=== PATIENT | male | born 1995 | race Caucasian/White ===

== ENCOUNTER 2021-12-06 17:20 | Emergency (ER) | payer OTHER, SELFPAY ==
--- NOTE | 2021-12-06 | ECG_ITS ---
Test Reason : chest pressure Blood Pressure : / mmHG Vent. Rate : 085 BPM Atrial Rate : 085 BPM P-R Int : 164 ms QRS Dur : 094 ms QT Int : 348 ms P-R-T Axes : 070 017 024 degrees QTc Int : 414 ms Normal sinus rhythm Normal ECG No previous ECGs available Referred By: Generic ED Physician Electronically Signed By:Albin Lake
--- NOTE | ~2021-12-06 | CT_ITS ---
EXAMINATION: CT ANGIOGRAM OF THE CHEST WITH AND WITHOUT CONTRAST (CT PULMONARY ANGIOGRAM FOR PE) CLINICAL INFORMATION: Reason for Exam Chest pain with shortness of breath COMPARISON: Chest radiograph 04/02/2019 TECHNIQUE: Prior to contrast administration, noncontrast localization images were obtained. Subsequently, multidetector volumetric imaging was performed from the thoracic inlet to below the diaphragms following the administration of 71 mL Omnipaque 350 intravenous contrast. No contrast reaction reported Sagittal, coronal, and MIP oblique sagittal reformatted images were obtained on the CT workstation, uploaded to PACS, and reviewed. This CT examination was performed using dose optimization techniques as appropriate, variously including the following: *Automated exposure control *Adjustment of mA and/or kV according to patient size (this includes techniques or standardized protocols for targeted exams where dose is matched to indication/reason for exam; i.e. extremities or head) *Use of iterative reconstruction technique Total exam dose-length product 436 mGy-cm FINDINGS: QUALITY OF STUDY/CONTRAST BOLUS: Satisfactory. PULMONARY ARTERIES: No central or segmental pulmonary emboli. THORACIC AORTA: No aneurysm or dissection. LUNG: No focal consolidation, nodules or masses. PLEURA: No pleural effusion or pneumothorax. MEDIASTINUM: Normal heart size. No pericardial effusion. No hilar or mediastinal lymphadenopathy. No evidence of septal bowing or right heart strain. CHEST WALL/AXILLA: No axillary or internal mammary lymphadenopathy. OSSEOUS STRUCTURES: No acute or suspicious osseous abnormality. UPPER ABDOMEN: There is splenomegaly and hepatic steatosis. No reflux of contrast into the hepatic veins to suggest elevated right heart pressures. CT/CT angio chest PE protocol IMPRESSION: No evidence of pulmonary emboli. Incidentally noted hepatic steatosis and splenomegaly VTE: negative
[2021-12-06 17:31] VITALS: BP 163/93; PULSE 97; RESP 18; TEMP 36.7; O2SAT 98; BMI 32.8
[2021-12-06 18:00] LABS: MANUAL DIFF FLAG NO
[2021-12-06 18:04] LABS: Basophils Percent Auto 0.4 % (0-2); Eosinophils Percent Auto 0.4 % (0-4); Hemoglobin 15.4 g/dl (14.0-18.0); Imm Gran Abs Auto 0.03 X10*3/uL (0.00-0.03); Imm Gran Pct Auto 0.3 % (0.0-0.4); Lymphocytes Absolute Auto 2.6 X10*3/uL (1.2-4.9); Lymphocytes Percent Auto 26.6 % (20-40); Mean Corpuscular Hemoglobin 29.7 pg (27.0-33.0); Mean Corpuscular Volume 84.8 fL (80.0-98.0); Mean Platelet Volume 9.8 fL (9.4-12.4); Monocytes Absolute Auto 0.7 X10*3/uL (0.1-1.2); Neutrophils Absolute Auto 6.3 x10*3/uL (2.0-8.3); Neutrophils Percent Auto 65.3 % (45-73); Platelet Count 236 X10*3/uL (160-400); Red Blood Count 5.19 X10*6/uL (4.60-5.80); Red Cell Distribution Width 12.1 % (11.0-16.0); White Blood Count 9.6 X10*3/uL (4.8-10.8)
[2021-12-06 18:29] LABS: Troponin-I High Sensitivity < 3.5 ng/L (<3.5-35.0)
[2021-12-06 18:34] LABS: Anion Gap 14 (12-20); Blood Urea Nitrogen 17 mg/dL (9-16); Calcium 9.7 mg/dL (8.4-10.2); Carbon Dioxide 25 mmol/L (22-29); Chloride 103 mmol/L (96-108); Creatinine Clr Calc Pharmacy 116.4; Estimated Glomerular Filt Rate > 60; Glucose Random 100 mg/dL (60-115); Potassium 3.4 mmol/L (3.3-5.1); Sodium 139 mmol/L (135-145)
[2021-12-06 21:09] VITALS: BP 154/67; PULSE 74; RESP 18; TEMP 36.8; O2SAT 98
--- NOTE | 2021-12-06 21:56 | ED_ITS ---
HPI - Chest Pain General Chief Complaint: Arrhythmia/Palpitations Stated Complaint: chest pressure/ hypertension Time Seen by Provider: 12/06/21 21:50 Source: patient Mode of arrival: ambulatory Limitations: no limitations History of Present Illness HPI narrative: Patient with no significant past medical history except for mild anxiety very strong family history of hypertension while at work notice mid chest pain/heavy checked his blood pressure was 220/130, on arrival patient blood pressure was 163/93 also patient has been feeling more short of breath for last 4- 5 days no leg pain patient fell palpitation but on arrival heart rate was 97 patient denies any significant anxiety at this time Related Data Previous Rx's Medication Instructions Recorded lisinopril 10 1 tab PO DAILY #30 tab 12/07/21 mg-hydrochlorothiazide 12.5 mg tablet Allergies Allergy/AdvReac Type Severity Reaction Status Date / Time amoxicillin Allergy Mild Rash Verified 12/06/21 17:30 Review of Systems Review of Systems: Yes all other systems are reviewed and are negative [facility] Social History Social History Advance Directives: No Physical Exam Vital Signs: Vital Signs: Last Vital Signs Temp 98.4 F 12/07/21 00:00 Pulse 74 12/07/21 00:00 Resp 16 12/07/21 00:00 BP 138/89 12/07/21 00:00 Pulse Ox 99 12/07/21 00:00 BMI result Body Mass Index 32.8 Appearance: Alert. Oriented X3. No acute distress. Slightly anxious Eyes: PERRLA, No Nystagmus ENT: Pharynx normal. Oral Mucosa moist Neck: Normal inspection. Neck supple. No carotid bruit CVS: Normal heart rate and rhythm. Pulses normal. Equal blood pressure both arms Respiratory: No respiratory distress. Equal air entry bilateral, no wheezing/rales/rhonchi Abdomen: Soft and nontender. Bowel sounds are present, no mass palpable, no CVA tenderness Skin: Skin warm and dry. Normal skin color. Normal skin turgor. Extremities: No lower extremity edema. No calf tenderness Neuro: Oriented X 3. No motor deficit. No sensory deficit.No cerebellar signs , cranial nerves II-XII intact MDM - Chest Pain MDM Narrative Medical decision making narrative: Patient with accelerated hypertension with strong family history of hypertension although he does have anxiety per blood pressure was about 200 no acute ischemic EKG changes restart patient on lisinopril advised patient to follow-up with PCP and do ambulatory blood pressure check and follow with PCP. Chest CTA negative for dissection or PE Lab Data Attestation: I reviewed the patient's lab results. Result diagrams: 12/06/21 17:53 12/06/21 17:53 Labs: Lab Results 12/06/21 12/06/21 12/06/21 Range/Units 17:53 17:53 17:53 WBC 9.6 (4.8-10.8) X10*3/uL RBC 5.19 (4.60-5.80) X10*6/uL Hgb 15.4 (14.0-18.0) g/dl Hct 44.0 (42.0-52.0) % MCV 84.8 (80.0-98.0) fL MCH 29.7 (27.0-33.0) pg MCHC 35.0 (31.0-36.0) g/dl RDW 12.1 (11.0-16.0) % Plt Count 236 (160-400) X10*3/uL MPV 9.8 (9.4-12.4) fL Immature Gran % (Auto) 0.3 (0.0-0.4) % Neut % (Auto) 65.3 (45-73) % Lymph % (Auto) 26.6 (20-40) % [place] % (Auto) 7.0 (2-11) % Eos % (Auto) 0.4 (0-4) % Baso % (Auto) 0.4 (0-2) % Lymph # (Auto) 2.6 (1.2-4.9) X10*3/uL [place] # (Auto) 0.7 (0.1-1.2) X10*3/uL Eos # (Auto) 0.0 (0.0-0.4) X10*3/uL Baso # (Auto) 0.0 (0.0-0.2) X10*3/uL Abs Immat Gran (auto) 0.03 (0.00-0.03) X10*3/uL Absolute Neuts (auto) 6.3 (2.0-8.3) x10*3/uL Absolute Nucleated RBC 0.000 (0.0-0.012) X10*3/uL Nucleated RBC % (auto) 0.0 (0.0-0.2) /100WBC Sodium 139 (135-145) mmol/L Potassium 3.4 (3.3-5.1) mmol/L Chloride 103 (96-108) mmol/L Carbon Dioxide 25 (22-29) mmol/L Anion Gap 14 (12-20) BUN 17 H (9-16) mg/dL Creatinine 1.23 (0.5-1.4) mg/dL Estim Creat Clear Calc 116.4 Estimated GFR > 60 Random Glucose 100 (60-115) mg/dL Calcium 9.7 (8.4-10.2) mg/dL Troponin I High Sens < 3.5 (<3.5-35.0) ng/L ECG Data ECG #1: Attestation: I personally reviewed and interpreted this ECG as follows: Interpretation: Heart rate 85 beats per minute sinus rhythm, normal axis normal intervals no acute ST-T changes impression normal EKG Discharge Plan Discharge Clinical Impression: Chest pain, Hypertension Patient Disposition: Home, Self-Care Instructions: Chest Pain (DC), Hypertension (ED) Additional Instructions: Avoid salt, exercise reduce weight Take blood pressure medicine daily as prescribed The blood pressure should be less than 140/90 Follow up with PCP Prescriptions: New lisinopril-hydrochlorothiazide 10-12.5 mg tablet 1 tab PO DAILY Qty: 30 0RF
[2021-12-06] MEDS: iohexoL 350 MG/ML 100 ML INFUS..BTL IV (22:55)
[2021-12-06] MEDS: lisinopriL 10 MG TABLET PO (23:41)
[2021-12-07] VITALS: BP 138/89; PULSE 74; RESP 16; TEMP 36.9; O2SAT 99
[2021-12-07 00:54] LABS: Troponin-I High Sensitivity < 3.5 ng/L (<3.5-35.0)
== END 2021-12-07 01:18 | disposition home or self-care (01) ==
PROVIDERS: Emergency Provider Internal Medicine
DX: I49.9 Cardiac arrhythmia, unspecified (principal); R07.89 Other chest pain; I10 Essential (primary) hypertension; Z79.899 Other long term (current) drug therapy
CPT/HCPCS: 36415; 71275; 80048; 84484; 85025; 93005; 99284; Q9967

== ENCOUNTER 2023-10-06 16:24 | Emergency (ER) | payer OTHER, SELFPAY ==
--- NOTE | 2023-10-06 16:26 | ECG_ITS ---
Test Reason : WEAK Blood Pressure : / mmHG Vent. Rate : 109 BPM Atrial Rate : 109 BPM P-R Int : 160 ms QRS Dur : 090 ms QT Int : 312 ms P-R-T Axes : 059 020 008 degrees QTc Int : 420 ms Sinus tachycardia Otherwise normal ECG When compared with ECG of 06-DEC-2021 17:35, No significant change was found Referred By: Afshan Brown Electronically Signed By:HANNAH HOYOS
[2023-10-06 16:59] VITALS: BP 158/83; PULSE 99; RESP 20; TEMP 36.9; O2SAT 99; BMI 34.2
--- NOTE | 2023-10-06 17:01 | ED.GENADULT ---
HPI - General Adult General Chief complaint: General Medical Stated complaint: muscle spasms,chest pain Time Seen by Provider: 10/06/23 17:26 Source: patient Mode of arrival: ambulatory Limitations: no limitations History of Present Illness HPI narrative: Patient 28 years old with history of anxiety been having twitching movements of the muscles which lower extremity for last 1 week no balance problems no muscle weakness no headache no neck pain or back pain no family history of muscular disease patient never had similar feeling when he has anxiety attack Related Data Previous Rx's Medication Instructions Recorded lisinopril 10 1 tab PO DAILY #30 tabs 12/07/21 mg-hydrochlorothiazide 12.5 mg tablet Allergies Allergy/AdvReac Type Severity Reaction Status Date / Time amoxicillin Allergy Mild Rash Verified 12/06/21 17:30 Review of Systems Review of Systems: Yes all other systems are reviewed and are negative [facility] Social History Social History Advance Directives: No Advance Directives Information Provided: No Physical Exam ED Vital Signs: Vital Signs - 24 hr 10/06/23 16:59 10/06/23 20:57 Temperature 98.5 F Pulse Rate 99 84 Respiratory Rate 20 16 Blood Pressure 158/83 H Pulse Oximetry 99 97 Oxygen Delivery Method Room Air Room Air BMI result Body Mass Index 34.2 Appearance: Alert. Oriented X3. No acute distress. Eyes: PERRLA, No Nystagmus ENT: Pharynx normal. Oral Mucosa moist no fasciculation Neck: Normal inspection. Neck supple. CVS: Normal heart rate and rhythm. Pulses normal. Respiratory: No respiratory distress. Equal air entry bilateral, no wheezing/rales/rhonchi Abdomen: Soft and nontender. Bowel sounds are present, no mass palpable, no CVA tenderness Skin: Skin warm and dry. Normal skin color. Normal skin turgor. Extremities: No lower extremity edema. No calf tenderness Neuro: Oriented X 3. No motor deficit. No sensory deficit.No cerebellar signs , cranial nerves II-XII intact deep tendon reflexes normal no muscle fasciculations seen no abnormal movement Course Course Course Narrative: This is rapid medical exam. Deferred additional HPI< ROS, PE to primary provider. 28 yo male with history of anxiety here with generalized body cramping x 1 week. Will need labs, EKG VSS Medical Decision Making Medical Decision Making MDM Narrative: Patient nonspecific this muscle spasm CPK slightly elevated to 232 patient advised to drink plenty of fluids and follow neurologist to rule out further muscular condition Differential Diagnosis Differential Diagnoses: The differential diagnosis associated with the presentation includes Muscle spasm/fasciculation/anxiety Lab Data [facility] Lab Attestation statement: I reviewed the patient's lab results. 10/06/23 19:13 10/06/23 19:13 Labs: Lab Results 10/06/23 Range/Units 19:13 WBC 10.8 (4.8-10.8) X10*3/uL RBC 5.21 (4.60-5.80) X10*6/uL Hgb 15.6 (14.0-18.0) g/dl Hct 43.9 (42.0-52.0) % MCV 84.3 (80.0-98.0) fL MCH 29.9 (27.0-33.0) pg MCHC 35.5 (31.0-36.0) g/dl RDW 11.8 (11.0-16.0) % Plt Count 238 (160-400) X10*3/uL MPV 9.6 (9.4-12.4) fL Immature Gran % (Auto) 0.3 (0.0-0.4) % Neut % (Auto) 69.9 (45-73) % Lymph % (Auto) 21.2 (20-40) % [place] % (Auto) 7.7 (2-11) % Eos % (Auto) 0.5 (0-4) % Baso % (Auto) 0.4 (0-2) % Lymph # (Auto) 2.3 (1.2-4.9) X10*3/uL [place] # (Auto) 0.8 (0.1-1.2) X10*3/uL Eos # (Auto) 0.1 (0.0-0.4) X10*3/uL Baso # (Auto) 0.0 (0.0-0.2) X10*3/uL Abs Immat Gran (auto) 0.03 (0.00-0.03) X10*3/uL Absolute Neuts (auto) 7.5 (2.0-8.3) x10*3/uL Absolute Nucleated RBC 0.000 (0.0-0.012) X10*3/uL Nucleated RBC % (auto) 0.0 (0.0-0.2) /100WBC PT 12.3 (11.1-13.3) SEC INR 1.0 (0.9-1.1) Sodium 142 (135-145) mmol/L Potassium 3.8 (3.3-5.1) mmol/L Chloride 107 (96-108) mmol/L Carbon Dioxide 24 (22-29) mmol/L Anion Gap 15 (12-20) BUN 18 H (9-16) mg/dL Creatinine 1.09 (0.5-1.4) mg/dL Estim Creat Clear Calc 131.6 Estimated GFR > 60 Random Glucose 90 (60-115) mg/dL Calcium 9.7 (8.4-10.2) mg/dL Magnesium 2.2 (1.6-2.6) mg/dL Total Bilirubin 0.6 (0.0-1.0) mg/dL Direct Bilirubin 0.2 (0.0-0.5) mg/dL AST 23 (5-37) U/L ALT 37 (0-40) U/L Alkaline Phosphatase 77 (39-117) U/L Total Creatine Kinase 232 H (38-174) U/L Total Protein 7.8 (6.5-8.0) g/dL Albumin 4.8 (3.5-5.0) g/dL Discharge Plan Discharge Clinical Impression: Muscle spasm Patient Disposition: Home, Self-Care Instructions: Muscle Spasm (ED) Additional Instructions: Drink plenty of fluids Check blood pressure daily should be less than 140/90 Follow with PCP if leg cramps continues Prescriptions: No Action lisinopril-hydrochlorothiazide 10-12.5 mg tablet 1 tab PO DAILY Qty: 30 0RF Interventions: ED Discharge Assessment Last Done: 10/06/23 20:58 Discharge Date/Time: 10/06/23 20:58
--- NOTE | 2023-10-06 17:13 | MHC.EDTECH ---
PT is lucid. PT states that he would rather wait until he's on the stretcher for the blood draw as in the past he has had hx of seizure activity and syncopal episode. RN aware.
[2023-10-06 19:16] LABS: MANUAL DIFF FLAG NO
[2023-10-06 19:24] LABS: Basophils Percent Auto 0.4 % (0-2); Eosinophils Absolute Auto 0.1 X10*3/uL (0.0-0.4); Eosinophils Percent Auto 0.5 % (0-4); Hematocrit 43.9 % (42.0-52.0); Hemoglobin 15.6 g/dl (14.0-18.0); Imm Gran Abs Auto 0.03 X10*3/uL (0.00-0.03); Imm Gran Pct Auto 0.3 % (0.0-0.4); Lymphocytes Absolute Auto 2.3 X10*3/uL (1.2-4.9); Lymphocytes Percent Auto 21.2 % (20-40); Mean Corpuscular HGB Conc 35.5 g/dl (31.0-36.0); Mean Corpuscular Hemoglobin 29.9 pg (27.0-33.0); Mean Corpuscular Volume 84.3 fL (80.0-98.0); Mean Platelet Volume 9.6 fL (9.4-12.4); Monocytes Absolute Auto 0.8 X10*3/uL (0.1-1.2); Monocytes Percent Auto 7.7 % (2-11); Neutrophils Absolute Auto 7.5 x10*3/uL (2.0-8.3); Neutrophils Percent Auto 69.9 % (45-73); Platelet Count 238 X10*3/uL (160-400); Red Blood Count 5.21 X10*6/uL (4.60-5.80); Red Cell Distribution Width 11.8 % (11.0-16.0); White Blood Count 10.8 X10*3/uL (4.8-10.8)
[2023-10-06 19:33] LABS: Alanine Aminotransferase 37 U/L (0-40); Albumin Level 4.8 g/dL (3.5-5.0); Alkaline Phosphatase 77 U/L (39-117); Anion Gap 15 (12-20); Aspartate Amino Transferase 23 U/L (5-37); Bilirubin Direct 0.2 mg/dL (0.0-0.5); Bilirubin Total 0.6 mg/dL (0.0-1.0); Blood Urea Nitrogen 18 mg/dL (9-16); Calcium 9.7 mg/dL (8.4-10.2); Carbon Dioxide 24 mmol/L (22-29); Chloride 107 mmol/L (96-108); Creatinine Clr Calc Pharmacy 131.6; Estimated Glomerular Filt Rate > 60; Glucose Random 90 mg/dL (60-115); Magnesium 2.2 mg/dL (1.6-2.6); Potassium 3.8 mmol/L (3.3-5.1); Sodium 142 mmol/L (135-145); Total Protein 7.8 g/dL (6.5-8.0)
[2023-10-06 19:36] LABS: Prothrombin Time 12.3 SEC (11.1-13.3)
[2023-10-06 20:57] VITALS: PULSE 84; RESP 16; O2SAT 97
== END 2023-10-06 20:58 | disposition home or self-care (01) ==
PROVIDERS: Nurse Practitioner Family; Emergency Provider Internal Medicine; PCP Nurse Practitioner Family; Referring Provider Nurse Practitioner Family
DX: M62.838 Other muscle spasm (principal); R07.9 Chest pain, unspecified
CPT/HCPCS: 36415; 80048; 80076; 82550; 83735; 85025; 85610; 93005; 99283

== ENCOUNTER → 2023-10-06 16:26 | Outpatient (BNV) | payer OTHER, SELFPAY | PROVIDERS: Emergency Provider Internal Medicine; PCP Nurse Practitioner Family; Referring Provider Nurse Practitioner Family; Visit Provider Internal Medicine | DX: R00.0 Tachycardia, unspecified (principal) | CPT/HCPCS: 93010 ==

== ENCOUNTER 2024-01-17 12:50 | Outpatient (REF) | payer OTHER, SELFPAY ==
--- NOTE | 2024-01-17 | EMG_ITS ---
Chief complaint: Weakness noted right thigh and bilateral hands since mid August 2023. Muscle twitching noted in both thighs. Denies any numbness. Denies any neck or back pain. History of anxiety. Exam does not show any proximal or distal weakness, MMT 5/5. Reflexes intact. No atrophy. He had a cramp on left foot during the test but did not see any fasciculations. Reason for referral: Evaluate for myopathy, radiculopathy, muscle disorder Referred by: Ashley Davila NP Procedure done: Upper and lower extremities NCS/EMG Precautions and/or limitations: None The limb temperature was monitored continuously and remained between 32-36 degrees C during the performance of the NCS. Nerve Conduction Studies Anti Sensory Summary Table ?Stim Site NR Onset (ms) Norm Onset (ms) Peak (ms) Norm Peak (ms) O-P Amp (?V) Norm O-P Amp Site1 Site2 Delta-0 (ms) Dist (cm) Joel (m/s) Norm Joel (m/s) Left Median Anti Sensory (2nd Digit) Wrist ? 2.4 3.1 <3.6 53.2 >10 Wrist 2nd Digit 2.4 14.0 58 Left Sural Anti Sensory (Lat Mall) Calf ? 1.8 3.8 <4.0 13.6 >5.0 Calf Lat Mall 1.8 14.0 78 Right Sural Anti Sensory (Lat Mall) Calf ? 2.9 3.5 <4.0 13.3 >5.0 Calf Lat Mall 2.9 14.0 48 Left Ulnar Anti Sensory (5th Digit) Wrist ? 2.3 2.9 <3.7 42.7 >15.0 Wrist 5th Digit 2.3 14.0 61 Motor Summary Table ?Stim Site NR Onset (ms) Norm Onset (ms) O-P Amp (mV) Norm O-P Amp iAmp (mV) Amp (1st) (%) Site1 Site2 Delta-0 (ms) Dist (cm) Joel (m/s) Norm Joel (m/s) Left Median Motor (Abd Poll Brev) Wrist ? 3.3 <3.9 13.1 >4.5 15.3 100.0 Elbow Wrist 4.2 24.0 57 >45 Elbow ? 7.5 11.6 14.2 88.5 Right Peroneal Motor (Ext Dig Brev) Ankle ? 3.8 <4.0 9.0 >2.5 11.8 100.0 Ankle Ext Dig Brev 3.8 0.0 B Fib ? 11.1 8.1 10.1 90.0 B Fib Ankle 7.3 37.0 51 >40 Poplt ? 12.0 8.3 10.4 92.2 Poplt B Fib 0.9 6.0 67 >40 Left Tibial Motor (Abd Lerma Brev) Ankle ? 3.4 <5 14.5 >2.5 19.1 100.0 Ankle Abd Lerma Brev 3.4 0.0 Knee ? 12.1 9.6 12.9 66.2 Knee Ankle 8.7 44.0 51 >40 Right Tibial Motor (Abd Lerma Brev) Ankle ? 3.1 <5 10.6 >2.5 13.7 100.0 Ankle Abd Lerma Brev 3.1 0.0 Knee ? 11.6 6.8 9.3 64.2 Knee Ankle 8.5 44.0 52 >40 Left Ulnar Motor (Abd Dig Minimi) Wrist ? 2.4 <3.0 7.3 >5 8.6 100.0 B Elbow Wrist 3.8 33.0 87 >45 B Elbow ? 6.2 7.2 8.5 98.6 A Elbow B Elbow 0.9 10.0 111 >45 A Elbow ? 7.1 6.9 8.2 94.5 EMG ?Side Muscle Nerve Root Ins Act Fibs Psw Amp Dur Poly Recrt Int Pat Comment Right AbdHallucis MedPlantar S1-2 Nml Nml Nml Nml Nml 0 Nml Complete Right AntTibialis Dp Br Peron L4-5 Nml Nml Nml Nml Nml 0 Nml Complete Right PostTibialis Tibial L5, S1 Nml Nml Nml Nml Nml 0 Nml Complete Right MedGastroc Tibial S1-2 Nml Nml Nml Nml Nml 0 Nml Complete Right RectFemoris Femoral L2-4 Nml Nml Nml Nml Nml 0 Nml Complete Left AbdHallucis MedPlantar S1-2 Nml Nml Nml Nml Nml 0 Nml Complete Left AntTibialis Dp Br Peron L4-5 Nml Nml Nml Nml Nml 0 Nml Complete Left PostTibialis Tibial L5, S1 Nml Nml Nml Nml Nml 0 Nml Complete Left MedGastroc Tibial S1-2 Nml Nml Nml Nml Nml 0 Nml Complete Left VastusMed Femoral L2-4 Nml Nml Nml Nml Nml 0 Nml Complete Left 1stDorInt Ulnar C8-T1 Nml Nml Nml Nml Nml 0 Nml Complete Left FlexCarRad Median C6-7 Nml Nml Nml Nml Nml 0 Nml Complete Left Biceps Musculocut C5-6 Nml Nml Nml Nml Nml 0 Nml Complete Left Triceps Radial C6-7-8 Nml Nml Nml Nml Nml 0 Nml Complete Left Deltoid Axillary C5-6 Nml Nml Nml Nml Nml 0 Nml Complete Paraspinal EMG ?Side Muscle Nerve Root Ins Act Fibs Psw Comment Right Lumbar Upper Rami Nml Nml Nml Right Lumbar Mid Rami Nml Nml Nml Right Lumbar Lower Rami Nml Nml Nml Left Lumbar Upper Rami Nml Nml Nml Left Lumbar Mid Rami Nml Nml Nml Left Lumbar Lower Rami Nml Nml Nml Right Cervical Upper Rami Nml Nml Nml Right Cervical Mid Rami Nml Nml Nml Right Cervical Lower Rami Nml Nml Nml Left Cervical Upper Rami Nml Nml Nml Left Cervical Mid Rami Nml Nml Nml Left Cervical Lower Rami Nml Nml Nml FINDINGS: All motor and sensory nerves tested showed normal latencies, amplitudes and conduction velocities. Concentric needle EMG was performed in selected muscles of the left upper extremity, bilateral lower extremities, bilateral cervical paraspinals, bilateral lumbar paraspinals. Study did not reveal signs of electric abnormalities as shown in the table below. No myopathic looking units seen. No fasciculations seen. IMPRESSION: 1. This is a normal study. 2. There is no electrodiagnostic evidence for median neuropathy, ulnar neuropathy, brachial plexopathy, or cervical radiculopathy. 3. There is no electrodiagnostic evidence for peroneal neuropathy, tibial neuropathy, lumbosacral plexopathy, lumbar radiculopathy, or peripheral neuropathy. 4. No signs of myopathy or muscle disorder. Thank you for your kind referral. Libby Carter MD, KELLIE Board Certified, [place] [employer] and Rehabilitation (ABPMR) Board Certified, [place] Board of Electrodiagnostic Medicine (ABEM) CODIN [id number] x [phone] MTDD
== END 2024-01-17 12:51 | disposition home or self-care (01) ==
LOC: HO.NEURO 12:50
PROVIDERS: PCP Nurse Practitioner Family; Visit Provider Nurse Practitioner Family
DX: M62.838 Other muscle spasm (principal); M62.81 Muscle weakness (generalized)
CPT/HCPCS: 95885; 95886; 95911

== ENCOUNTER → 2024-01-17 12:53 | Outpatient (BNV) | payer OTHER, SELFPAY | PROVIDERS: PCP Nurse Practitioner Family; Visit Provider Physical Medicine & Rehabilitation | DX: R53.1 Weakness (principal); M79.604 Pain in right leg; M79.641 Pain in right hand; M79.605 Pain in left leg; M79.642 Pain in left hand | CPT/HCPCS: 95886; 95911 ==

== ENCOUNTER 2024-05-22 12:46 | Outpatient (AMB) | payer OTHER, SELFPAY ==
--- NOTE | 2024-05-22 12:52 | A.OFFVIS_ITS ---
Vital Signs 05/22/24 13:00 Height 6 ft Weight 263 lb BMI 35.7 BP 112/80 Blood Pressure Location Rt brachial Position Sitting Respiration 16 Pulse 57 Pulse Source Pulse Oximeter Pulse Oximetry (%) 98 Oxygen Delivery Method Room Air Intake Visit Reasons: ENP: Twitching Muscle movements - Confirmed Intake Note: Pt presents for new pt consultation for twitching. 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 when he lies down at night he had spasms in his thighs , muscles in his back were vibrating.It started happening every night. He had difficulty falling asleep. He also started having similar leg twitches when he was awake- more in the evening and rest.He went to ER in Sep 2023 when he had leg spasms when he was sitting in his couch and did not resolve. He feels he has muscle fatigue . He also reports leg tingling at rest. he has loud snoring. EMg was normal. He denies back pain He has h/o anxiety and is on therapy. CK was 130 CBCCMP TSH were normal PFS Medical History (Updated 05/22/24 @ 13:27 by Chantelle Ordonez MD) Cramp in lower extremity associated with sleep Hypersomnia Snoring HTN (hypertension) Anxiety Surgical History (Updated 05/22/24 @ 13:06 by Karen Cullen CMA) H/O umbilical hernia repair Family History (Updated 05/22/24 @ 12:59 by Karen Clulen CMA) Mother HTN (hypertension) Father HTN (hypertension) Social History (Updated 05/22/24 @ 13:00 by Karen Cullen CMA) Alcohol intake: current Comment: occasional Patient Tobacco Use Status: Never used Tobacco Use of substances other than those prescribed or required for medical reasons: No Physical Exam Vital Signs: Last Vital Signs Pulse 57 05/22/24 13:00 Resp 16 05/22/24 13:00 BP 112/80 05/22/24 13:00 Pulse Ox 98 05/22/24 13:00 Oxygen Delivery Method Room Air 05/22/24 13:00 BMI result Body Mass Index 35.7 Const General: cooperative, healthy appearing, comfortable and anxious Nutritional Appearance: obese Orientation/consciousness: patient oriented x3 Eyes Pupils: Equal, round and reactive pupils present Neuro General: patient oriented x3, gait normal, tone normal, moves all extremities and no focal motor deficits Cranial nerves: Yes CN's II-XII intact bilaterally, Yes Facial sensation intact/muscles of mastication intact, Yes Equal, round and reactive pupils present, Yes Bilaterally intact EOM present, Yes Nystagmus not present, Yes Normal facial strength present, Yes Midline tongue present and Yes Symmetric palate elevation present Cognition (Neuro): normal cognition Gait exam (Neuro): Normal gait present Motor exam (neuro): 5/5 motor strength present throughout and Normal motor muscle tone present throughout Deep tendon reflexes (DTR's): Right triceps reflex intensity grade: 1+, Left triceps reflex intensity grade: 1+, Rt Biceps (C5, C6): 1+, Left biceps reflex intensity grade: 1+, Right brachioradialis reflex intensity grade: 1+, Left brachioradialis reflex intensity grade: 1+, Right patellar reflex intensity grade: 1+ and Left patellar reflex intensity grade: 1+ Coordination: [id number] test normal Assessment & Plan Assessment & Plan (1) Cramp in lower extremity associated with sleep: Comment: ? restless legs , Periodic limb movements Code(s): G47.62 - Sleep related leg cramps Category: Medical (2) Snoring: Code(s): R06.83 - Snoring Category: Medical Plan I will schedule him for home sleep test to r/o sleep apnea. Increase sertraline 50mg qm Start gabapentin 100 mg 1-3 tabs qhs Stop buspar Reviewed CBC CMP TSH I will check hisVit B 12 Vit D and ferritin Orders: Orders RT home sleep study Today G47.10 - Hypersomnia, unspecified, G47.62 - Sleep related leg cramps, R06.83 - Snoring Medications: New sertraline 50 mg PO DAILY 30 tabs 6RF gabapentin 1 to 3 caps qhs 100 mg PO BEDTIME 90 caps 6RF Coding Level of Care Code New Pt Level 4 (07219) Diagnoses Cramp in lower extremity associated with sleep G47.62 Snoring R06.83
[2024-05-22 13:00] VITALS: BP 112/80; PULSE 57; RESP 16; O2SAT 98; BMI 35.7
== END 2024-05-22 14:03 | disposition home or self-care (01) ==
PROVIDERS: PCP Nurse Practitioner Family; Visit Provider Psychiatry & Neurology Neurology
DX: G47.62 Sleep related leg cramps (principal); R06.83 Snoring
CPT/HCPCS: 99204

== ENCOUNTER → 2024-05-22 12:51 | Outpatient (BNVA) | payer OTHER, SELFPAY | PROVIDERS: PCP Nurse Practitioner Family; Visit Provider Psychiatry & Neurology Neurology ==

== ENCOUNTER 2024-05-22 13:35 | Outpatient (REF) | payer OTHER, SELFPAY ==
[2024-05-22 18:11] LABS: Ferritin 294 ng/mL (20-250)
[2024-05-22 18:22] LABS: Folate 9.8 ng/mL (> or = 4.0); Vitamin B12 560 pg/mL (200-900)
[2024-05-26 17:38] LABS: Vitamin D 25-OH, D2 <4 ng/mL; Vitamin D 25-OH, D3 34 ng/mL; Vitamin D 25-OH, Total 34 ng/mL (30-100)
== END 2024-05-22 13:36 | disposition home or self-care (01) ==
LOC: HO.HKASLDS 13:35
PROVIDERS: Visit Provider Psychiatry & Neurology Neurology
DX: G47.62 Sleep related leg cramps (principal)
CPT/HCPCS: 36415; 82306; 82607; 82728; 82746

== ENCOUNTER → 2024-09-02 08:57 | Outpatient (REF) | payer OTHER, SELFPAY | LOC: HO.SL 08:57 | PROVIDERS: PCP Nurse Practitioner Family; Visit Provider Psychiatry & Neurology Neurology | DX: R06.83 Snoring (principal); G47.10 Hypersomnia, unspecified; G47.62 Sleep related leg cramps | CPT/HCPCS: 95806 ==

== ENCOUNTER → 2024-09-03 09:09 | Outpatient (BNV) | payer OTHER, SELFPAY | PROVIDERS: PCP Nurse Practitioner Family; Visit Provider Psychiatry & Neurology Neurology | DX: R06.83 Snoring (principal); G47.10 Hypersomnia, unspecified | CPT/HCPCS: 95806 ==

== ENCOUNTER 2024-12-18 08:52 | Outpatient (AMB) | payer OTHER, SELFPAY ==
[2024-12-18 08:56] VITALS: BP 138/88; PULSE 86; O2SAT 95; BMI 34.2
--- NOTE | 2024-12-18 08:56 | MHC.OFFVIS ---
Vital Signs 12/18/24 08:56 Height 6 ft Weight 252 lb BMI 34.2 BP 138/88 Blood Pressure Location Rt brachial Position Sitting Pulse 86 Pulse Source Pulse Oximeter Pulse Oximetry (%) 95 Oxygen Delivery Method Room Air Intake Visit Reasons: Follow Up Intake Note: patient following up for sleep study results done 09/16/24 labs scanned Allergies clavulanic acid [From Augmentin] Allergy (Intermediate, Verified 12/18/24 08:59) Unknown amoxicillin Allergy (Mild, Verified 12/18/24 08:59) Rash Medication List - Last Reconciled 12/18/24 by Chantelle Ordonez MD gabapentin 100 mg PO BEDTIME hydroxyzine HCl 10 mg PO BEDTIME PRN lorazepam 0.5 mg PO BEDTIME PRN propranolol 20 mg PO BID sertraline 50 mg PO DAILY HPI Comments Details: 29y/o male comes for follow up of muscle twitches. His symptoms are better since last visit.Gabapentin is helping . Home sleep test was inconclusive . Labs were normal.He works less now and he stress level is less. History form initial visit- It started about 8 months ago. when he lies down at night he had spasms in his thighs , muscles in his back were vibrating.It started happening every night. He had difficulty falling asleep. He also started having similar leg twitches when he was awake- more in the evening and rest.He went to ER in Sep 2023 when he had leg spasms when he was sitting in his couch and did not resolve. He feels he has muscle fatigue . He also reports leg tingling at rest. he has loud snoring. EMg was normal. He denies back pain He has h/o anxiety and is on therapy. CK was 130 CBCCMP [facility] Medical History Cramp in lower extremity associated with sleep Hypersomnia Snoring HTN (hypertension) Anxiety Surgical History H/O umbilical hernia repair Family History Mother HTN (hypertension) Father HTN (hypertension) Social History Alcohol intake: current Comment: occasional Patient Tobacco Use Status: Never used Tobacco Physical Exam Vital Signs: Last Vital Signs Pulse 86 12/18/24 08:56 BP 138/88 12/18/24 08:56 Pulse Ox 95 12/18/24 08:56 Oxygen Delivery Method Room Air 12/18/24 08:56 BMI result Body Mass Index 34.2 Const General: cooperative, healthy appearing, comfortable and anxious Nutritional Appearance: obese Orientation/consciousness: patient oriented x3 Eyes Pupils: Equal, round and reactive pupils present Neuro General: patient oriented x3, gait normal, tone normal, moves all extremities and no focal motor deficits Cranial nerves: Yes CN's II-XII intact bilaterally, Yes Facial sensation intact/muscles of mastication intact, Yes Equal, round and reactive pupils present, Yes Bilaterally intact EOM present, Yes Nystagmus not present, Yes Normal facial strength present, Yes Midline tongue present and Yes Symmetric palate elevation present Cognition (Neuro): normal cognition Gait exam (Neuro): Normal gait present Motor exam (neuro): 5/5 motor strength present throughout and Normal motor muscle tone present throughout Coordination: [id number] test normal Assessment & Plan Assessment & Plan (1) Cramp in lower extremity associated with sleep: Comment: ? restless legs , Periodic limb movements Code(s): G47.62 - Sleep related leg cramps Category: Medical (2) Snoring: Code(s): R06.83 - Snoring Category: Medical Plan in lab sleep study to r/o sleep apnea. Continue sertraline 100mg qm Gabapentin 100 mg 1-3 tabs qhs Stop buspar Orders: Orders RT PSG in-lab sleep study Today G47.10 - Hypersomnia, unspecified, G47.62 - Sleep related leg cramps, R06.83 - Snoring Medications: Changed From sertraline 50 mg PO DAILY 30 tabs 6RF To sertraline 100 mg (2 x 50 mg) PO DAILY 30 tabs 6RF Refilled gabapentin 1 to 3 caps qhs 100 mg PO BEDTIME 90 caps 6RF Coding Level of Care Code Est Pt Level 4 (35661) Diagnoses Cramp in lower extremity associated with sleep G47.62 Snoring R06.83
--- OUTSIDE RECORDS SUMMARY | 2024-12-18 09:22 | XMS_ITS | Encounter Summary ---
Author Organization [facility] Address [address] [place] [address] Phone Care Team Providers Care Companion Name Role Phone Brittani Peralta MD Primary Care Provider [phone] Encounter Details Date Type Department Care Team (Late st Contact Info) Description 06/21/2010 Documentation EM Family Medicine [address] [place] [address] Family Medicine, Physician [address] [place] [address] Social History Tobacco Use Types Packs/Day Years Used Date Smoking Tobacco: Never Assessed Sex and Gender Information Value Date Recorded Sex Assigned at Not on file Legal Sex Male 4:54 PM EDT Gender Identity Not on file Sexual Orientation Not on file documented as of this encounter Plan of Treatment Not on file documented as of this encounter Visit Diagnoses Not on filedocumented in this encounter Care Teams Companion Relationship Specialty Start Date End Date Brittani Peralta MD [address] [place] [address] [place] [address] PCP - General 06/08/17 documented as of this encounter
--- OUTSIDE RECORDS SUMMARY | 2024-12-18 09:22 | XMS_ITS | Encounter Summary ---
Author Organization [facility] Address [address] [place] [address] Phone Care Team Providers Care Head Custodian Name Role Phone Brittani Peralta MD Primary Care Provider [phone] Encounter Details Date Type Department Care Team (Late st Contact Info) Description 02/05/2014 Documentation EM Family Medicine [address] [place] [address] Family Medicine, Physician [address] [place] [address] Social History Tobacco Use Types Packs/Day Years [...] on filedocumented in this encounter Care Teams Head Custodian Relationship Specialty Start Date End Date Brittani Peralta MD [address] [place] [address] [place] [address] PCP - General 06/08/17 documented as of this encounter
--- OUTSIDE RECORDS SUMMARY | 2024-12-18 09:22 | XMS_ITS | Encounter Summary ---
Author Organization [facility] Address [address] [place] [address] Phone Care Team Providers Care Internal Recruiter Name Role Phone Brittani Peralta MD Primary Care Provider [phone] Encounter Details Date Type Department Care Team (Late st Contact Info) Description 06/14/2017 Conversion Encounter [facility] [place] [address] [place] [address] Social History Tobacco Use Types Packs/Day Years Used Date Smoking Tobacco: Never Comments:Never smoker Sex and Gender Information Value Date Recorded Sex Assigned at Not on file Legal Sex Male 4:54 PM EDT Gender Identity Not on file Sexual Orientation Not on file documented as of this encounter Plan of Treatment Not on file documented as of this encounter Visit Diagnoses Not on filedocumented in this encounter Care Teams Internal Recruiter Relationship Specialty Start Date End Date Brittani Peralta MD [address] [place] [address] PCP - General 06/08/17 documented as of this encounter
--- OUTSIDE RECORDS SUMMARY | 2024-12-18 09:22 | XMS_ITS | Clinical Summary ---
Author Organization [facility] Address [address] [place] [address] Phone Care Team Providers Care Drinking Water Technician Name Role Phone Brittani Peralta MD Primary Care Provider [phone] Immunizations Immunization Administration Dates Next Due DTP 09/09/1996, 5,1995,04/10 DTaP 5 03/01/2000 HPV, Quadrivalent 02/03/2014,05/20/2013,05/09/20 12 Hep A, ped/adol 02/03/2014,04/28/2011 Hep B, ped/adol 1995,1995,1995 Hib (PRP-T) 06/03/1996, 5,1995,04/10 IPV 03/01/2000 Influenza Split 07/18/2011 Influenza, injectable, quadr ivalent, preservative free 02/03/2014 MMR 02/24/1999,03/04/1996 Meningococcal Conj (Menactra) MCV4P 05/25/2014,0 02/20/2007 OPV 1995,1995,1995 Tdap 02/20/2007 Varicella 03/04/2008,06/03/1996 Family History Relation Name Status Comments Father Father: Asthma Maternal Grandfather Materna l uncle: Diabetes mellitus Mother Alive Mother: fatty l iver Other Family history of Diabetes mellitus, Family history of Dental caries, No family history of Sudden /[place] under age 55, Family history of CVA (Stroke) Social History Tobacco Use Types Packs/Day Years Used Date Smoking Tobacco: Never Comments:Never smoker Sex and Gender Information Value Date Recorded Sex Assigned at Not on file Legal Sex Male 4:54 PM EDT Gender Identity Not on file Sexual Orientation Not on file Last Filed Vital Signs Vital Sign Reading Time Taken Comments Blood Pressure 123/79 05/29/2016 12:00 AM EDT Pulse 62 05/29/2016 12:00 AM EDT Temperature 36.4 ??C (97.5 ??F) 05/29/2016 12:00 AM E DT Respiratory Rate - - Oxygen Saturation - - Inhaled Oxygen Concentration - - Weight 105 kg (231 lb 3.2 oz) 05/29/2016 12:00 A M EDT Height 182.9 cm (6') 05/29/2016 12:00 AM EDT Body Mass Index 31.36 05/29/2016 12:00 AM EDT Plan of Treatment Health Maintenance Due Date Last Done Comments DTaP,Tdap,and Td Vaccines (7 - Td or Tdap) 02/20/2017 02/20/2007, 03/01/2000, 09/09/1996, Additional history exists Influenza Vaccines (#1) 2024 02/03/2014, 07/18 COVID-19 Vaccine ( season) 2024 Hepatitis B Vaccines Completed 1995, 1995, 1995 HIB Vaccines Completed 06/03/1996, 07/31, 1995, Additional history exists MMR Vaccines Completed 02/24/1999, 03/04/1996 IPV Vaccines Completed 03/01/2000, 07/31, 1995, Additional history exists Varicella Vaccines Completed 03/04/2008, 06/03/1996 HPV Vaccines Completed 02/03/2014, 04/29, 05/09/2012 Hepatitis A Vaccines Completed 02/03/2014, 04/28/20 11 Meningococcal Vaccine Aged Out 05/25/2014, 007 No longer eligible based on patient's age to complete this topic Men B Vaccine Aged Out No longer elig ible based on patient's age to complete this topic Pneumococcal Vaccine Aged Out No long er eligible based on patient's age to complete this topic Care Teams Drinking Water Technician Relationship Specialty Start Date End Date Brittani Peralta MD [address] [facility] [place] [address] PCP - General 06/08/17
== END 2024-12-18 09:14 | disposition home or self-care (01) ==
PROVIDERS: PCP Nurse Practitioner Family; Visit Provider Psychiatry & Neurology Neurology
DX: G47.62 Sleep related leg cramps (principal); R06.83 Snoring
CPT/HCPCS: 99214

== ENCOUNTER → 2025-02-10 20:30 | Outpatient (REF) | payer OTHER, SELFPAY ==
--- OUTSIDE RECORDS SUMMARY | 2025-02-10 21:06 | XMS_ITS | Encounter Summary ---
Author Organization [facility] Address [address] [place] [address] Phone Care Team Providers Care Neurosurgical Nurse Practitioner Name Role Phone Brittani Peralta MD Primary Care Provider [phone] Encounter Details Date Type Department Care Team (Late st Contact Info) Description 02/05/2014 Documentation EM Family Medicine [address] [place] [address] Family Medicine, Physician [address] [place] [address] Social History Tobacco Use Types Packs/Day Years [...] on filedocumented in this encounter Care Teams Neurosurgical Nurse Practitioner Relationship Specialty Start Date End Date Brittani Peralta MD [address] [place] [address] [place] [address] PCP - General 06/08/17 documented as of this encounter
--- OUTSIDE RECORDS SUMMARY | 2025-02-10 21:06 | XMS_ITS | Encounter Summary ---
Author Organization [facility] Address [address] [place] [address] Phone Care Team Providers Care Apparel Cutter Name Role Phone Brittani Peralta MD Primary Care Provider [phone] Encounter Details Date Type Department Care Team (Late st Contact Info) Description 06/14/2017 Conversion Encounter [facility] [place] [address] [place] [address] Social History Tobacco Use Types Packs/Day Years [...] on filedocumented in this encounter Care Teams Apparel Cutter Relationship Specialty Start Date End Date Brittani Peralta MD [address] [place] [address] PCP - General 06/08/17 documented as of this encounter
--- OUTSIDE RECORDS SUMMARY | 2025-02-10 21:06 | XMS_ITS | Encounter Summary ---
Author Organization [facility] Address [address] [place] [address] Phone Care Team Providers Care Operations Support Specialist Name Role Phone Brittani Peralta MD Primary Care Provider [phone] Encounter Details Date Type Department Care Team (Late st Contact Info) Description 06/21/2010 Documentation EM Family Medicine [address] [place] [address] Family Medicine, Physician [address] [place] [address] Social History Tobacco Use Types Packs/Day Years [...] on filedocumented in this encounter Care Teams Operations Support Specialist Relationship Specialty Start Date End Date Brittani Peralta MD [address] [place] [address] [place] [address] PCP - General 06/08/17 documented as of this encounter
== END ==
LOC: HO.SL 20:30
PROVIDERS: PCP Nurse Practitioner Family; Visit Provider Psychiatry & Neurology Neurology
DX: G47.62 Sleep related leg cramps (principal); G47.10 Hypersomnia, unspecified; R06.83 Snoring
CPT/HCPCS: 95810

== ENCOUNTER → 2025-02-10 21:04 | Outpatient (BNV) | payer OTHER, SELFPAY | PROVIDERS: PCP Nurse Practitioner Family; Visit Provider Psychiatry & Neurology Neurology | DX: G47.10 Hypersomnia, unspecified (principal) | CPT/HCPCS: 95810 ==

== ENCOUNTER 2025-06-18 10:00 | Outpatient (AMB) | payer OTHER, SELFPAY ==
--- NOTE | 2025-06-18 10:01 | MHC.OFFVIS ---
Vital Signs 06/18/25 10:02 Height 6 ft Weight 252 lb 8 oz BMI 34.2 BP 128/82 Blood Pressure Location Rt brachial Position Sitting Pulse 80 Pulse Source Pulse Oximeter Pulse Oximetry (%) 97 Oxygen Delivery Method Room Air Intake Visit Reasons: 6 mnts f/u Intake Note: Follow up Cramp in lower extremity associated with sleep and Snoring Batch Heat Treat Operator Required: No Accompanied by: Self / Same As Patient Allergies clavulanic acid (From Augmentin) Allergy (Intermediate, Verified 06/18/25 10:02) Unknown amoxicillin Allergy (Mild, Verified 06/18/25 10:02) Rash Medication List - Last Reconciled 06/18/25 by Chantelle Ordonez MD gabapentin 100 mg PO BEDTIME hydroxyzine HCl 10 mg PO BEDTIME PRN sertraline 100 mg (2 x 50 mg) PO DAILY HPI Comments Details: 30y/o male comes for follow up of muscle twitches.He is doing good. His symptoms are better since last visit.Gabapentin is helping . Home sleep test was inconclusive .In lab sleep study is normal Labs were normal.He works less now and he stress level is less. History form initial visit- It started about 8 months ago. when he lies down at night he had spasms in his thighs , muscles in his back were vibrating.It started happening every night. He had difficulty falling asleep. He also started having similar leg twitches when he was awake- more in the evening and rest.He went to ER in Sep 2023 when he had leg spasms when he was sitting in his couch and did not resolve. He feels he has muscle fatigue . He also reports leg tingling at rest. he has loud snoring. EMg was normal. He denies back pain He has h/o anxiety and is on therapy. CK was 130 CBCCMP TSH were normal PFSH Medical History Cramp in lower extremity associated with sleep Hypersomnia Snoring HTN (hypertension) Anxiety Surgical History H/O umbilical hernia repair Family History Mother HTN (hypertension) Father HTN (hypertension) Social History Alcohol intake: current Comment: occasional Patient Tobacco Use Status: Never used Tobacco Physical Exam Vital Signs: Last Vital Signs Pulse 80 06/18/25 10:02 BP 128/82 06/18/25 10:02 Pulse Ox 97 06/18/25 10:02 Oxygen Delivery Method Room Air 06/18/25 10:02 BMI result Body Mass Index 34.2 Const General: cooperative, healthy appearing and comfortable Nutritional Appearance: obese Orientation/consciousness: patient oriented x3 Eyes Pupils: Equal, round and reactive pupils present Neuro General: patient oriented x3, gait normal, tone normal, moves all extremities and no focal motor deficits Cranial nerves: Yes CN's II-XII intact bilaterally, Yes Facial sensation intact/muscles of mastication intact, Yes Equal, round and reactive pupils present, Yes Bilaterally intact EOM present, Yes Nystagmus not present, Yes Normal facial strength present, Yes Midline tongue present and Yes Symmetric palate elevation present Cognition (Neuro): normal cognition Gait exam (Neuro): Normal gait present Motor exam (neuro): 5/5 motor strength present throughout and Normal motor muscle tone present throughout Coordination: [id number] test normal Assessment & Plan Assessment & Plan (1) Cramp in lower extremity associated with sleep: Comment: ? restless legs , Periodic limb movements Code(s): G47.62 - Sleep related leg cramps Category: Medical Plan in lab sleep study - normal Continue sertraline 50 mg qm Gabapentin 100 mg 1-3 tabs qhs Medications: Changed From sertraline 100 mg (2 x 50 mg) PO DAILY 30 tabs 6RF To sertraline 50 mg PO DAILY 30 tabs 6RF Refilled gabapentin 1 to 3 caps qhs 100 mg PO BEDTIME 90 caps 6RF Coding Level of Care Code Est Pt Level 4 (19989) Diagnoses Cramp in lower extremity associated with sleep G47.62
[2025-06-18 10:02] VITALS: BP 128/82; PULSE 80; O2SAT 97; BMI 34.2
--- OUTSIDE RECORDS SUMMARY | 2025-06-18 11:24 | XMS_ITS | Clinical Summary ---
Author Organization [facility] Address [address] [place] [address] Phone Care Team Providers Care Wrister Name Role Phone Brittani Peralta MD Primary Care Provider Immunizations Immunization Administration Dates Next Due DTP [...] Dental caries, No family history of Sudden /[place] under age 55, Family history of CVA [...] 62 05/29/2016 12:00 AM EDT Temperature 36.4 C (97.5 F) 05/29/2016 12:00 AM EDT Respiratory Rate - - Oxygen Saturation - [...] 02/20/2017 02/20/2007, 03/01/2000, 09/09/1996, Additional history exists COVID-19 Vaccine ( season) 2024 Influenza Vaccines (#1) 2025 02/03/2014, 07/18 Hepatitis B Vaccines Completed 1995, 1995, 1995 [...] age to complete this topic Care Teams Wrister Relationship Specialty Start Date End Date Brittani Peralta MD [address] [facility] [place] [address] PCP - General 06/08/17
--- OUTSIDE RECORDS SUMMARY | 2025-06-18 11:24 | XMS_ITS | Patient Health Record ---
Author Organization [facility] [place] Address [address] [place] [address] Care Team Providers Care Sed Middle [employer] Teacher Name Role Phone Brittani Peralta MD Primary Care Provider Unavailab BreenBeth Unavailable [phone] Allergies Allergen (clinical drug ingredient) Drug/Non Drug Allergy documented on EMR Reaction Allergy Type Onset Date Status amoxicillin / clavulanate Augmentin Unknown Drug Allergy Active Reason For Referral No Information Problems Problem Type SNOMED Code ICD Code Onset Dates Problem Status W/U Status Risk Notes Problem Cellulitis and abscess of toe (298784603) Celluitis - Toes (681.10) Active confirmed Problem Hammer toe (040715062) Hammer toe (735.4) Active confirmed Problem Pain in limb (31224576) Pain in Limb (729.5) Active confirmed Problem Paronychia (34825203) Paronychia (681.11) Active confirmed Problem Ingrowing nail (234351221) Ingrowing Nail (703.0) Active confirmed Plan Of Treatment Pending Test Test Name Order Date [id number] Plate 10/08/2014 17624 I&D ABSCESS- SIMPLE,SINGLE 014 Insurance Providers Payer Name Payer Address Payer Phone Subscriber Number Group Number Insured Name Patient Relationship to Insured Coverage Start Date Coverage End Date [facility] [address] [place] [address] [phone] [id number] Dirk Conley Child - Insured has Financial Responsibility
== END 2025-06-18 10:18 | disposition home or self-care (01) ==
LOC: HO.HSMS 10:01
PROVIDERS: PCP Nurse Practitioner Family; Visit Provider Psychiatry & Neurology Neurology
DX: G47.62 Sleep related leg cramps (principal)
CPT/HCPCS: 99214